=== PATIENT | female | born 1940 | race Hispanic/Latino ===

== ENCOUNTER 2017-10-23 13:08 | Observation (INO) | payer OTHER ==
[~2017-10-23] VITALS: Ht 165.1 cm; Wt 54.7 kg
[~2017-10-23 13:08] MED LIST: METO-408 PO; MULT-1203 PO; VIT D 3 PO
[2017-10-23] MEDS ORDERED: ASPIRIN 325 MG TABLET ONE (13:18)
[2017-10-23 13:20] LABS: BASOPHILS % (AUTO) 0.4 % (0.0-5.0); EOSINOPHILS % (AUTO) 0.5 % (0.0-8.0); HEMATOCRIT 37.1 % (36-48); LYMPHOCYTES % (AUTO) 19.8 % (21.0-51.0); MEAN CORPUSCULAR HEMOGLOBIN 31.1 pg (27.0-33.0); MEAN CORPUSCULAR HGB CONC 34.4 g/dL (32.0-36.0); MEAN CORPUSCULAR VOLUME 90.4 fL (79-99); MONOCYTES % (AUTO) 7.6 % (3.0-13.0); NEUTROPHILS % (AUTO) 71.7 % (40.0-77.0); PLATELET COUNT (AUTO) 348 K/uL (130-400); RED BLOOD CELL COUNT(AUTO) 4.11 MIL/uL (4.00-5.50); RED CELL DISTRIBUTION WIDTH 13.6 % (11.0-15.5); WHITE BLOOD COUNT (AUTO) 6.6 K/uL (4.8-10.8)
[2017-10-23 13:30] LABS: CREATININE 0.7 mg/dL (0.5-1.5); POTASSIUM 4.2 mmol/L (3.5-5.1)
[2017-10-23] MEDS ORDERED: METOPROLOL TARTRATE 1 MG/ML 5ML VIAL IV ONE (13:33)
[2017-10-23 13:34] LABS: ALBUMIN 3.7 g/dL (3.5-5.0); BILIRUBIN,TOTAL 0.3 mg/dL (0.2-1.0)
[2017-10-23 14:02] LABS: B-TYPE NATRIURETIC PEPTIDE 643 pg/mL (0-100)
[2017-10-23 14:04] LABS: INR 1.1 (0.85-1.15); PARTIAL THROMBOPLASTIN TIME 29.2 SEC (26.3-35.5); PROTHROMBIN TIME 11.5 SEC (9.6-11.6)
[2017-10-23 15:20] LABS: APPEARANCE,URINE Clear (CLEAR); BILIRUBIN,URINE Negative (NEGATIVE); COLOR,URINE Yellow (YELLOW); GLUCOSE, URINE (UA) Negative (NEGATIVE); KETONES,URINE Trace mg/dL (NEGATIVE); LEUKOCYTE ESTERASE ,URINE Trace (NEGATIVE); NITRATE,URINE Negative (NEGATIVE); OCCULT BLOOD,URINE Negative (NEGATIVE); PH,URINE 8.5 (5.0-8.0); PROTEIN,URINE Negative (NEGATIVE); UROBILINOGEN,URINE 0.2 mg/dL (0.2-1.0)
[2017-10-23 15:40] LABS: BACTERIA,URINE Rare /HPF (None Seen); RBC,URINE 0-1 /HPF (0-1); SQUAMOUS EPITHELIAL CELL,UR Rare /HPF (0-2)
[2017-10-23 15:41] LABS: AMORPHOUS SEDIMENT,UR Rare /LPF (None Seen)
[2017-10-23] MEDS ORDERED: ACETAMINOPHEN 325 MG TAB PO PRN ×2 (16:00)
[2017-10-23] MEDS ORDERED: ONDANSETRON HCL 4 MG/2 ML VIAL IVP PRN (16:00)
[2017-10-23] MEDS ORDERED: LACTULOSE 20 GM/30 ML UDCUP PO PRN (16:00)
[2017-10-23 18:30] VITALS: BP 140/95
[2017-10-23] MEDS ORDERED: ONDANSETRON HCL MDV 20ML 2 MG/ML VIAL IVP PRN (18:45)
[2017-10-23 19:24] VITALS: BP 145/83
[2017-10-23] MEDS ORDERED: LISI-613 PO (20:38)
[2017-10-23] MEDS: METOPROLOL TARTRATE 50 MG TAB PO SCH (21:19)
[2017-10-23] MEDS ORDERED: POTASSIUM CHLORIDE 10% ELIXIR 20 MEQ/15 ML UDCUP PO PRN (23:45)
[2017-10-23] MEDS ORDERED: POTASSIUM CHLORIDE 20 MEQ ERTAB PO PRN (23:45)
[2017-10-23] MEDS ORDERED: POTASSIUM CHLORIDE 20MEQ/100ML 100 ML IV PRN (23:45)
[2017-10-23] MEDS ORDERED: LIDOCAINE HCL-MPF 1% 2ML VIAL IVP PRN (23:45)
[2017-10-24] VITALS: BP 137/88
[2017-10-24 00:35] LABS: CREATINE KINASE MB 1.1 ng/mL (0.5-3.6); CREATINE KINASE, TOTAL 82 U/L (21-232); MYOGLOBIN 31 ng/mL (10-92); TROPONIN I < 0.04 ng/mL (0.00-0.06)
[2017-10-24 04:00] VITALS: BP 137/88
[2017-10-24 05:57] LABS: MEAN CORPUSCULAR HEMOGLOBIN 32.2 pg (27.0-33.0); MEAN CORPUSCULAR HGB CONC 35.6 g/dL (32.0-36.0); MEAN CORPUSCULAR VOLUME 90.6 fL (79-99); NUCLEATED RED BLOOD CELLS 0.1 % (0.0-0.19); PLATELET COUNT (AUTO) 331 K/uL (130-400); RED BLOOD CELL COUNT(AUTO) 3.87 MIL/uL (4.00-5.50); RED CELL DISTRIBUTION WIDTH 13.6 % (11.0-15.5)
[2017-10-24 06:35] LABS: CARBON DIOXIDE 29 mmol/L (21-32); CHLORIDE 105 mmol/L (101-111); CHOLESTEROL 182 mg/dL (<200); CREATINE KINASE, TOTAL 76 U/L (21-232); CREATININE 0.7 mg/dL (0.5-1.5); GLOMERULAR FILTR. RATE CALC 86 mL/min (>60); GLUCOSE,RANDOM 93 mg/dL (70-105); HDL CHOLESTEROL 59 mg/dL (35-85); LDL DIRECT 109 mg/dL (0-99); MYOGLOBIN 28 ng/mL (10-92); POTASSIUM 3.8 mmol/L (3.5-5.1); SODIUM SERUM 141 mmol/L (136-145); THYROID STIMULATING HORMONE 1.81 uIU/mL (0.36-3.74); TRIGLYCERIDES 102 mg/dL (30-200); TROPONIN I < 0.04 ng/mL (0.00-0.06); UREA NITROGEN, BLOOD 19 mg/dL (7-18)
[2017-10-24 07:00] VITALS: BP 123/80
[2017-10-24] MEDS: METOPROLOL TARTRATE 50 MG TAB PO SCH ×2 (08:27→20:28)
[2017-10-24] MEDS: ASPIRIN 325MG EC TAB 325 MG TABLET.DR PO SCH (08:27)
[2017-10-24] MEDS: ENOXAPARIN SODIUM 40 MG/0.4 ML SYRINGE SQ SCH (08:28)
[2017-10-24 11:00] VITALS: BP 123/71
[2017-10-24 16:00] VITALS: BP 136/88
[2017-10-24 19:46] VITALS: BP 111/76
[2017-10-25 00:21] VITALS: BP 137/88
[2017-10-25 04:05] VITALS: BP 135/74
[2017-10-25 04:08] LABS: CREATININE 0.7 mg/dL (0.5-1.5); POTASSIUM 3.6 mmol/L (3.5-5.1)
[2017-10-25 08:42] VITALS: BP 101/67
[2017-10-25] MEDS: METOPROLOL TARTRATE 50 MG TAB PO SCH (09:00)
[2017-10-25] MEDS: ASPIRIN 325MG EC TAB 325 MG TABLET.DR PO SCH (09:00)
[2017-10-25] MEDS: ENOXAPARIN SODIUM 40 MG/0.4 ML SYRINGE SQ SCH (09:00)
[2017-10-25] MEDS ORDERED: VIT D 2000 UNIT PO SCH (09:00)
[2017-10-25] MEDS ORDERED: MULTIVITAMIN TABLET PO SCH (09:00)
[2017-10-25] MEDS ORDERED: METO-409 PO (12:01)
[2017-10-25] MEDS ORDERED: APIX5TAB PO (12:03)
[2017-10-25 12:05] VITALS: BP 104/76
[2017-10-25] MEDS ORDERED: APIXABAN 5 MG TABLET PO ONE (15:14)
[2017-10-25] MEDS ORDERED: APIXABAN 5 MG TABLET PO SCH (21:00)
== END 2017-10-25 15:46 | disposition home or self-care (01) ==
LOC: EDH 13:08 → 2AH 15:34
PROVIDERS: ADMIT Family Medicine; ATTEND Family Medicine
DX: I48.91 Unspecified atrial fibrillation (principal); R74.8 Abnormal levels of other serum enzymes; I10 Essential (primary) hypertension; E78.5 Hyperlipidemia, unspecified
CPT/HCPCS: 36415 ×3; 71045; 80048 ×2; 80053; 80061; 81001; 82550 ×3; 82553 ×2; 83874 ×2; 83880 ×2; 84443; 84484 ×3; 85025; 85027; 85610; 85730; 93005 ×3; 93306; 93880; 96372 ×2; 99285; A4510; A4600; G0378 ×48; J1650 ×2; J3490; 96361; 96365; 96366; 96367

== ENCOUNTER 2018-07-22 14:39 | Emergency (ER) | payer OTHER ==
[~2018-07-22 14:39] MED LIST changes: +APIX5TAB PO; +LISI-613 PO; -METO-408 PO; +METO-409 PO
[2018-07-22 14:57] LABS: BASOPHILS % (AUTO) 0.2 % (0.0-5.0); EOSINOPHILS % (AUTO) 0.2 % (0.0-8.0); HEMATOCRIT 36.6 % (36-48); LYMPHOCYTES % (AUTO) 8.7 % (21.0-51.0); MEAN CORPUSCULAR HEMOGLOBIN 30.4 pg (27.0-33.0); MEAN CORPUSCULAR HGB CONC 32.9 g/dL (32.0-36.0); MEAN CORPUSCULAR VOLUME 92.2 fL (79-99); MONOCYTES % (AUTO) 8.7 % (3.0-13.0); NEUTROPHILS % (AUTO) 82.2 % (40.0-77.0); NUCLEATED RED BLOOD CELLS 0.1 % (0.0-0.19); PLATELET COUNT (AUTO) 229 K/uL (130-400); RED BLOOD CELL COUNT(AUTO) 3.97 MIL/uL (4.00-5.50); WHITE BLOOD COUNT (AUTO) 12.5 K/uL (4.8-10.8)
[2018-07-22 15:12] LABS: INR 1.15 (0.85-1.15)
[2018-07-22 15:17] LABS: CREATININE 0.7 mg/dL (0.5-1.5); POTASSIUM 4.1 mmol/L (3.5-5.1)
[2018-07-22 15:21] LABS: ALBUMIN 3.5 g/dL (3.5-5.0); BILIRUBIN,TOTAL 0.4 mg/dL (0.2-1.0)
[2018-07-22 15:21] LABS: APPEARANCE,URINE Clear (CLEAR); BILIRUBIN,URINE Negative (NEGATIVE); COLOR,URINE Yellow (YELLOW); GLUCOSE, URINE (UA) Negative (NEGATIVE); KETONES,URINE Trace mg/dL (NEGATIVE); LEUKOCYTE ESTERASE ,URINE Trace (NEGATIVE); NITRATE,URINE Negative (NEGATIVE); OCCULT BLOOD,URINE Trace (NEGATIVE); PROTEIN,URINE Negative (NEGATIVE)
[2018-07-22] MEDS ORDERED: NITROGLYCERIN 1GM/1 INCH PACKET TD ONE (15:33)
[2018-07-22 15:50] LABS: BACTERIA,URINE Few /HPF (None Seen); RBC,URINE None Seen /HPF (0-1); SQUAMOUS EPITHELIAL CELL,UR 0-2 /HPF (0-2)
== END 2018-07-22 19:36 | disposition home or self-care (01) ==
LOC: EDH 14:39
DX: R07.89 Other chest pain (principal); I10 Essential (primary) hypertension; I48.91 Unspecified atrial fibrillation; E78.5 Hyperlipidemia, unspecified
CPT/HCPCS: 36415; 71045; 80053; 81001; 82150; 82550; 84484; 85025; 85610; 85730; 87804; 93005

== ENCOUNTER → 2018-07-28 | Outpatient (CLI) | payer OTHER | END | disposition home or self-care (01) | LOC: RAH 14:19 | PROVIDERS: ATTEND Internal Medicine Cardiovascular Disease | DX: Z13.6 Encounter for screening for cardiovascular disorders (principal) | CPT/HCPCS: 75571 ==

== ENCOUNTER 2023-05-30 06:22 | Observation (INO) | payer OTHER ==
[~2023-05-30] VITALS: Ht 165.1 cm; Wt 55.2 kg
[~2023-05-30 06:22] MED LIST changes: -LISI-613 PO; +LISI20TA24 PO
[2023-05-30 06:45] LABS: BASOPHILS # (AUTO) 0.02 K/uL (0.00-0.20); BASOPHILS % (AUTO) 0.2 % (0.0-5.0); EOSINOPHILS # (AUTO) 0.04 K/uL (0.00-0.70); EOSINOPHILS % (AUTO) 0.4 % (0.0-8.0); HEMATOCRIT 35.8 % (36-48); IMMATURE GRANULOCYTE ABSOLUTE 0.06 K/uL (0-1); LYMPHOCYTES # (AUTO) 1.4 K/uL (1.0-4.8); LYMPHOCYTES % (AUTO) 14.3 % (21.0-51.0); MEAN CORPUSCULAR HEMOGLOBIN 32.2 pg (27.0-33.0); MEAN CORPUSCULAR HGB CONC 34.1 g/dL (32.0-36.0); MEAN CORPUSCULAR VOLUME 94.5 fL (79-99); MONOCYTES # (AUTO) 0.5 K/uL (0.1-1.0); MONOCYTES % (AUTO) 5.1 % (3.0-13.0); NEUTROPHILS # (AUTO) 7.7 K/uL (1.8-7.7); NEUTROPHILS % (AUTO) 79.4 % (40.0-77.0); PLATELET COUNT (AUTO) 243 K/uL (130-400); RED BLOOD CELL COUNT(AUTO) 3.79 MIL/uL (4.00-5.50); RED CELL DISTRIBUTION WIDTH 13.5 % (11.0-15.5); WHITE BLOOD COUNT (AUTO) 9.7 K/uL (4.8-10.8)
[2023-05-30 06:53] LABS: APPEARANCE,URINE CLEAR (CLEAR); BILIRUBIN,URINE NEGATIVE (NEGATIVE); COLOR,URINE COLORLESS (YELLOW); GLUCOSE, URINE (UA) 200 mg/dL (NEGATIVE); KETONES,URINE 10 mg/dL (NEGATIVE); LEUKOCYTE ESTERASE ,URINE NEGATIVE Leu/uL (NEGATIVE); NITRATE,URINE NEGATIVE (NEGATIVE); OCCULT BLOOD,URINE NEGATIVE (NEGATIVE); PROTEIN,URINE NEGATIVE (NEGATIVE); UROBILINOGEN,URINE 0.2 mg/dL (0.2-1.0)
[2023-05-30 06:55] LABS: ADD UA MICROSCOPIC YES
[2023-05-30 06:57] LABS: RBC,URINE 0-1 /HPF (0-1); WBC,URINE 0-1 /HPF (0-1)
[2023-05-30 07:03] LABS: SARS-CoV-2, RNA, NAAT NEGATIVE SARS CoV-2 (NEGATIVE)
[2023-05-30 07:08] LABS: ALBUMIN 3.9 g/dL (3.5-5.0); BILIRUBIN,TOTAL 0.5 mg/dL (0.2-1.0); CREATININE 0.7 mg/dL (0.5-1.5); INFLUENZA TYPE A Negative For Type A (NEGATIVE); INFLUENZA TYPE B Negative For Type B (NEGATIVE); POTASSIUM 3.2 mmol/L (3.5-5.1); TOTAL PROTEIN, SERUM 7.4 g/dL (6.0-8.3)
[2023-05-30] MEDS ORDERED: FAMOTIDINE 20MG VIAL IV ONE (08:00)
[2023-05-30] MEDS ORDERED: ONDANSETRON 4MG INJ IVP ONE (08:00)
[2023-05-30] MEDS ORDERED: IOHEXOL-350 75 ML VIAL IV ONE (08:06)
[2023-05-30] MEDS ORDERED: CEFTRIAXONE 2GM VIAL IVPB ONE (08:30)
[2023-05-30] MEDS ORDERED: ZOLPIDEM TARTRATE 5 MG TAB PO PRN (12:00)
[2023-05-30] MEDS ORDERED: GUAIFENESIN-DM 200/20 MG 10 ML PO PRN (12:00)
[2023-05-30] MEDS ORDERED: ACETAMINOPHEN 325 MG TAB PO PRN ×2 (12:00)
[2023-05-30] MEDS ORDERED: KETOROLAC 15MG/ML VIAL (15MG/ML) IV PRN (12:00)
[2023-05-30] MEDS ORDERED: MAG/ALUM/SIMETH 30 ML UDCUP PO PRN (12:00)
[2023-05-30] MEDS ORDERED: LACTULOSE 20 GM/30 ML UDCUP PO PRN (12:00)
[2023-05-30] MEDS ORDERED: ALBUTEROL 0.083% 2.5 MG/3 ML INH IH PRN (12:00)
[2023-05-30] MEDS ORDERED: ONDANSETRON 4MG INJ IV PRN (12:00)
[2023-05-30] MEDS ORDERED: HYDRALAZINE 20MG/ML VIAL IV PRN (12:00)
[2023-05-30] MEDS ORDERED: DiphenhydrAMINE HCL 50 MG/ML VIAL IV PRN (12:00)
[2023-05-30] MEDS ORDERED: NITROGLYCERIN 0.4 MG SL TAB SL PRN (12:00)
[2023-05-30] MEDS ORDERED: POTASSIUM CHLORIDE 20MEQ/100ML 100 ML IV PRN (12:30)
[2023-05-30] MEDS: POTASSIUM CHLORIDE 10% ELIXIR 20 MEQ/15 ML UDCUP PO PRN ×2 (13:02→13:10)
[2023-05-30] MEDS: LACTATED RINGERS 1000ML 1,000 ML IV SCH ×2 (13:02→22:00)
[2023-05-30 16:00] VITALS: BP 149/78; PULSE 65; RESP 18
[2023-05-30] MEDS ORDERED: INSULIN HUMULIN R 100 UNIT/ML 3ML SQ SCH (16:30)
[2023-05-30 20:00] VITALS: O2SAT 97
[2023-05-30] MEDS: LISINOPRIL 20 MG TABLET PO SCH (20:33)
[2023-05-30] MEDS: APIXABAN 5 MG TABLET PO SCH (20:33)
[2023-05-30] MEDS: FAMOTIDINE 20MG VIAL IV SCH (20:33)
[2023-05-30 22:27] VITALS: BP 156/82; PULSE 72; RESP 18
[2023-05-30 23:54] VITALS: BP 150/76; PULSE 68; RESP 18
[2023-05-31] VITALS (7 sets, daily range): BP systolic 135–152; BP diastolic 65–83; PULSE 55–64; RESP 17–18; O2SAT 93–98
[2023-05-31 05:31] LABS: BASOPHILS # (AUTO) 0.01 K/uL (0.00-0.20); BASOPHILS % (AUTO) 0.2 % (0.0-5.0); HEMATOCRIT 29.7 % (36-48); IMMATURE GRANULOCYTE ABSOLUTE 0.05 K/uL (0-1); LYMPHOCYTES # (AUTO) 0.9 K/uL (1.0-4.8); LYMPHOCYTES % (AUTO) 13.3 % (21.0-51.0); MEAN CORPUSCULAR HEMOGLOBIN 31.7 pg (27.0-33.0); MEAN CORPUSCULAR HGB CONC 34.7 g/dL (32.0-36.0); MEAN CORPUSCULAR VOLUME 91.4 fL (79-99); MONOCYTES # (AUTO) 0.5 K/uL (0.1-1.0); MONOCYTES % (AUTO) 8.3 % (3.0-13.0); NEUTROPHILS % (AUTO) 77.4 % (40.0-77.0); PLATELET COUNT (AUTO) 212 K/uL (130-400); RED BLOOD CELL COUNT(AUTO) 3.25 MIL/uL (4.00-5.50); RED CELL DISTRIBUTION WIDTH 13.5 % (11.0-15.5); WHITE BLOOD COUNT (AUTO) 6.4 K/uL (4.8-10.8)
[2023-05-31 05:38] LABS: HEMOGLOBIN A1C 5.6 % (4.0-6.0)
[2023-05-31 05:56] LABS: ALANINE AMINOTRANSFERASE 20 U/L (12-78); ALBUMIN 3.1 g/dL (3.5-5.0); ASPARTATE AMINOTRANSFERASE 19 U/L (10-37); BILIRUBIN,TOTAL 0.5 mg/dL (0.2-1.0); CARBON DIOXIDE 30 mmol/L (21-32); CREATINE KINASE, TOTAL 133 U/L (21-232); CREATININE 0.7 mg/dL (0.5-1.5); GLOMERULAR FILTR. RATE CALC 86 mL/min (>90); GLUCOSE,RANDOM 102 mg/dL (70-105); THYROID STIMULATING HORMONE 1.38 uIU/mL (0.36-3.74); TOTAL PROTEIN, SERUM 6.3 g/dL (6.0-8.3); UREA NITROGEN, BLOOD 12 mg/dL (7-18)
[2023-05-31 06:04] LABS: CHLORIDE 99 mmol/L (101-111); POTASSIUM 3.3 mmol/L (3.5-5.1); SODIUM SERUM 135 mmol/L (136-145)
[2023-05-31 06:11] LABS: AMMONIA < 10 umol/L (11-32)
[2023-05-31] MEDS: MAGNESIUM 2GM PREMIX 50ML 50 ML IV PRN (06:11)
[2023-05-31] MEDS: KCL 20 MEQ ERTAB PO PRN (06:12)
[2023-05-31] MEDS ORDERED: MAGNESIUM 2GM PREMIX 50ML 50 ML IV SCH (08:00)
[2023-05-31] MEDS ORDERED: KCL 20 MEQ ERTAB PO ONE (08:00)
[2023-05-31] MEDS ORDERED: NON-FORMULARY MEDICATION 1 EACH (Metoprolol Succinate 100 MG) PO SCH (09:00)
[2023-05-31] MEDS ORDERED: ENOXAPARIN SODIUM 40 MG/0.4 ML SYRINGE SQ SCH (09:00)
[2023-05-31] MEDS ORDERED: NON-FORMULARY MEDICATION 1 EACH (Multivitamin (Multi Vitamin Daily) 1 EACH) PO SCH (09:00)
[2023-05-31] MEDS: VIT D3 2000 UNIT PO SCH (09:08)
[2023-05-31] MEDS: FAMOTIDINE 20MG VIAL IV SCH ×2 (09:09→20:03)
[2023-05-31] MEDS: METOPROLOL SUCCINATE 50 MG TAB.SR.24H PO SCH (09:09)
[2023-05-31] MEDS: APIXABAN 5 MG TABLET PO SCH ×2 (09:09→20:05)
[2023-05-31] MEDS: MULTIVITAMIN TABLET PO SCH (09:09)
[2023-05-31] MEDS: LACTATED RINGERS 1000ML 1,000 ML IV SCH ×3 (09:10→22:21)
[2023-05-31] MEDS: LISINOPRIL 20 MG TABLET PO SCH (20:04)
[2023-06-01 00:20] VITALS: BP 168/80; PULSE 59; RESP 18
[2023-06-01 04:20] VITALS: BP 115/58; PULSE 65; RESP 18
[2023-06-01] MEDS: LACTATED RINGERS 1000ML 1,000 ML IV SCH (05:44)
[2023-06-01 05:53] LABS: HEMATOCRIT 33.3 % (36-48); MEAN CORPUSCULAR HEMOGLOBIN 31.8 pg (27.0-33.0); MEAN CORPUSCULAR HGB CONC 33.9 g/dL (32.0-36.0); MEAN CORPUSCULAR VOLUME 93.8 fL (79-99); RED BLOOD CELL COUNT(AUTO) 3.55 MIL/uL (4.00-5.50); RED CELL DISTRIBUTION WIDTH 13.9 % (11.0-15.5); WHITE BLOOD COUNT (AUTO) 6.5 K/uL (4.8-10.8)
[2023-06-01 06:07] LABS: ALBUMIN 3.1 g/dL (3.5-5.0); BILIRUBIN,TOTAL 0.4 mg/dL (0.2-1.0); CREATININE 0.6 mg/dL (0.5-1.5); MAGNESIUM 1.8 mg/dL (1.80-2.40); POTASSIUM 3.5 mmol/L (3.5-5.1)
[2023-06-01] MEDS: POTASSIUM CHLORIDE 10% ELIXIR 20 MEQ/15 ML UDCUP PO PRN (06:33)
[2023-06-01] MEDS: MAGNESIUM 2GM PREMIX 50ML 50 ML IV PRN (06:34)
[2023-06-01 08:00] VITALS: BP 141/72; PULSE 62; RESP 18; O2SAT 98
[2023-06-01] MEDS: MULTIVITAMIN TABLET PO SCH (08:44)
[2023-06-01] MEDS: METOPROLOL SUCCINATE 50 MG TAB.SR.24H PO SCH (08:44)
[2023-06-01] MEDS: FAMOTIDINE 20MG VIAL IV SCH (08:45)
[2023-06-01] MEDS: APIXABAN 5 MG TABLET PO SCH (08:45)
[2023-06-01] MEDS: KCL 20 MEQ ERTAB PO PRN (08:46)
[2023-06-01] MEDS: VIT D3 2000 UNIT PO SCH (08:48)
[2023-06-01 09:30] VITALS: BP_SYST 126; BP_SYST 133; BP_SYST 142; BP_DIAS 58; BP_DIAS 61; BP_DIAS 63; PULSE 63
[2023-06-01 12:00] VITALS: BP 140/67; PULSE 61; RESP 18
== END 2023-06-01 16:30 | disposition home or self-care (01) ==
LOC: EDH 06:22 → EDHIP 11:57 → 3BH 14:45
PROVIDERS: ADMIT Internal Medicine; ATTEND Internal Medicine
DX: R55 Syncope and collapse (principal); Z20.822 Contact with and (suspected) exposure to COVID-19; E87.6 Hypokalemia; M54.2 Cervicalgia; E78.5 Hyperlipidemia, unspecified; E86.0 Dehydration; I11.0 Hypertensive heart disease with heart failure; I50.32 Chronic diastolic (congestive) heart failure; E87.8 Other disorders of electrolyte and fluid balance, not elsewhere classified; R11.2 Nausea with vomiting, unspecified; I48.91 Unspecified atrial fibrillation; Z79.01 Long term (current) use of anticoagulants; Z79.899 Other long term (current) drug therapy
CPT/HCPCS: 96361 ×3; 96375 ×2; 99285; 84484 ×2; 80053 ×3; 83690; 85025 ×2; 87040 ×2; 87804 ×2; 83605 ×2; 81001; 36415 ×3; 87635; 71045; 72125; 74178; 93005; 94664; 96376 ×2; 96365; 96366; 83036; 84443; 82550; 83735 ×2; 83880; 82140; 70450; 93306; 93880 ×2; 97161; 97116; 84145; 85027; G0378 ×49; C9803; J3490 ×5; J2405 ×2; Q9967; J3475 ×2; J7120 ×2; J0360

== ENCOUNTER 2023-10-10 11:12 | Emergency (ER) | payer OTHER ==
[~2023-10-10] VITALS: Ht 162.6 cm; Wt 54.4 kg
[2023-10-10] MEDS: METOCLOPRAMIDE 10 MG/2 ML VIAL IVP ONE (12:07)
[2023-10-10] MEDS: MECLIZINE HCL 25 MG TABLET PO ONE (12:07)
[2023-10-10 12:11] LABS: BASOPHILS # (AUTO) 0.02 K/uL (0.00-0.20); BASOPHILS % (AUTO) 0.3 % (0.0-5.0); EOSINOPHILS # (AUTO) 0.15 K/uL (0.00-0.70); EOSINOPHILS % (AUTO) 1.9 % (0.0-8.0); HEMATOCRIT 38.6 % (36-48); LYMPHOCYTES # (AUTO) 1.5 K/uL (1.0-4.8); MEAN CORPUSCULAR HEMOGLOBIN 31.4 pg (27.0-33.0); MEAN CORPUSCULAR HGB CONC 33.7 g/dL (32.0-36.0); MEAN CORPUSCULAR VOLUME 93.2 fL (79-99); MONOCYTES # (AUTO) 0.5 K/uL (0.1-1.0); MONOCYTES % (AUTO) 6.5 % (3.0-13.0); NEUTROPHILS # (AUTO) 5.7 K/uL (1.8-7.7); PLATELET COUNT (AUTO) 280 K/uL (130-400); RED BLOOD CELL COUNT(AUTO) 4.14 MIL/uL (4.00-5.50); RED CELL DISTRIBUTION WIDTH 14.5 % (11.0-15.5)
[2023-10-10 12:13] LABS: BILIRUBIN,URINE NEGATIVE (NEGATIVE); COLOR,URINE YELLOW (YELLOW); GLUCOSE, URINE (UA) NEGATIVE (NEGATIVE); KETONES,URINE NEGATIVE (NEGATIVE); LEUKOCYTE ESTERASE ,URINE NEGATIVE Leu/uL (NEGATIVE); NITRATE,URINE NEGATIVE (NEGATIVE); OCCULT BLOOD,URINE NEGATIVE (NEGATIVE); PH,URINE 7.5 (5.0-8.0); PROTEIN,URINE NEGATIVE (NEGATIVE); UROBILINOGEN,URINE 0.2 mg/dL (0.2-1.0)
[2023-10-10 12:15] LABS: ADD UA MICROSCOPIC YES; APPEARANCE,URINE HAZY (CLEAR)
[2023-10-10 12:17] LABS: BACTERIA,URINE FEW /HPF (None Seen); MUCUS,URINE RARE LPF (None Seen); RBC,URINE 0-1 /HPF (0-1); WBC,URINE 0-1 /HPF (0-1)
[2023-10-10 12:31] LABS: CREATININE 0.7 mg/dL (0.5-1.0); POTASSIUM 3.8 mmol/L (3.5-5.1)
[2023-10-10 12:43] LABS: BILIRUBIN,TOTAL 0.3 mg/dL (0.2-1.0); MAGNESIUM 1.8 mg/dL (1.80-2.40); THYROID STIMULATING HORMONE 9.61 uIU/mL (0.36-3.74); TOTAL PROTEIN, SERUM 7.7 g/dL (6.0-8.3)
[2023-10-10 13:49] VITALS: BP 157/68; PULSE 62; RESP 16; O2SAT 97
[2023-10-10] MEDS ORDERED: LEVO25TA9 PO (13:49)
[2023-10-10] MEDS ORDERED: MECL-302 PO (13:49)
== END 2023-10-10 14:18 | disposition home or self-care (01) ==
LOC: EDH 11:12
DX: R55 Syncope and collapse (principal); H81.10 Benign paroxysmal vertigo, unspecified ear; E03.9 Hypothyroidism, unspecified; I10 Essential (primary) hypertension; I48.91 Unspecified atrial fibrillation; Z79.01 Long term (current) use of anticoagulants; Z79.899 Other long term (current) drug therapy
CPT/HCPCS: 99285; 96374; 70450; 84443; 83735; 84484; 80053; 83690; 85025; 82948; 81001; 36415; 93005; J2765

== ENCOUNTER → 2023-12-01 | Outpatient (CLI) | payer OTHER ==
[~2023-12-01] MED LIST changes: +LEVO25TA9 PO; +MECL-302 PO
[2023-12-01 17:11] LABS: T4 (THYROXINE) 10.3 ug/dL (4.7-13.3)
== END | disposition home or self-care (01) ==
LOC: LAB 11:44
PROVIDERS: ATTEND Physician Assistant
DX: I48.0 Paroxysmal atrial fibrillation (principal)
CPT/HCPCS: 36415; 84436; 84479

== ENCOUNTER 2024-08-04 10:39 | Emergency (ER) | payer OTHER ==
[~2024-08-04] VITALS: Ht 165.1 cm; Wt 54.9 kg
--- NOTE | 2024-08-04 11:44 | HMCIMG ---
Exam: NONCONTRAST CT BRAIN REASON: occipital headache. COMPARISON: 10/10/2023 TECHNIQUE: Images are obtained from vertex to the skull base. The exam was performed without IV contrast. FINDINGS: There are generous ventricles and sulci. There is decreased attenuation in the deep central white matter. These findings are consistent with atrophy. There are no acute appearing focal parenchymal lesions. There is no evidence of mass, intracranial hemorrhage or acute stroke. Posterior fossa and brainstem structures appear unremarkable. There are no abnormal fluid collections. Extra cranial soft tissues appear unremarkable as well. IMPRESSION: 1. Atrophy, no acute finding. CT was performed with one or more following dose reduction techniques: automated exposure control, adjustment of the mA and kv according to patient's size, or use of a iterative reconstruction technique.
[2024-08-04 12:02] LABS: BASOPHILS # (AUTO) 0.01 K/uL (0.00-0.20); BASOPHILS % (AUTO) 0.2 % (0.0-5.0); EOSINOPHILS # (AUTO) 0.05 K/uL (0.00-0.70); HEMATOCRIT 36.1 % (36-48); IMMATURE GRANULOCYTE ABSOLUTE 0.02 K/uL (0-1); LYMPHOCYTES % (AUTO) 20.7 % (21.0-51.0); MEAN CORPUSCULAR HEMOGLOBIN 31.6 pg (27.0-33.0); MEAN CORPUSCULAR HGB CONC 32.7 g/dL (32.0-36.0); MEAN CORPUSCULAR VOLUME 96.5 fL (79-99); MONOCYTES # (AUTO) 0.5 K/uL (0.1-1.0); MONOCYTES % (AUTO) 10.2 % (3.0-13.0); NEUTROPHILS # (AUTO) 3.3 K/uL (1.8-7.7); NEUTROPHILS % (AUTO) 67.5 % (40.0-77.0); PLATELET COUNT (AUTO) 255 K/uL (130-400); RED BLOOD CELL COUNT(AUTO) 3.74 MIL/uL (4.00-5.50); RED CELL DISTRIBUTION WIDTH 14.2 % (11.0-15.5); WHITE BLOOD COUNT (AUTO) 4.8 K/uL (4.8-10.8)
[2024-08-04 12:03] LABS: CREATININE 0.7 mg/dL (0.5-1.0); POTASSIUM 3.6 mmol/L (3.5-5.1)
[2024-08-04] MEDS: ORPHENADRINE 60MG/2ML IM ONE (12:16)
[2024-08-04] MEDS: 0.9%NACL 1000ML 1,000 ML IV ONE (12:18)
[2024-08-04 12:21] VITALS: BP 190/83; PULSE 55; RESP 12; TEMP 97.8; O2SAT 99
[2024-08-04 12:37] LABS: APPEARANCE,URINE CLEAR (CLEAR); BILIRUBIN,URINE NEGATIVE (NEGATIVE); COLOR,URINE YELLOW (YELLOW); GLUCOSE, URINE (UA) NEGATIVE (NEGATIVE); KETONES,URINE NEGATIVE (NEGATIVE); LEUKOCYTE ESTERASE ,URINE NEGATIVE Leu/uL (NEGATIVE); NITRATE,URINE NEGATIVE (NEGATIVE); OCCULT BLOOD,URINE NEGATIVE (NEGATIVE); PROTEIN,URINE NEGATIVE (NEGATIVE); UROBILINOGEN,URINE 0.2 mg/dL (0.2-1.0)
--- NOTE | 2024-08-04 12:41 | NUR ---
elevated bp of 189/80 er made aware
[2024-08-04] MEDS ORDERED: DICL20GE TP (12:54)
--- NOTE | 2024-08-04 12:54 | ERN ---
General Chief Complaint: Headache Stated Complaint: LEFT SIDE HEAD PAIN Time Seen by MD: 10:43 Source: patient History of Present Illness Initial Comments Patient is an 83-year-old female coming in to be evaluated for occipital headache. Per family member and patient headaches has been ongoing for six months. Family was concerned because the pain ever subsided after see being evaluated by PCP no relief the pain so they came in for further evaluation. Patient is alert and oriented. No neurological deficit. Allergies: Coded Allergies: No Known Drug Allergies (Unverified Allergy, Unknown, 04/08/17) Home Meds Active Scripts Levothyroxine Sodium (Synthroid 25 Mcg Tab) 25 Mcg Tablet, 25 MCG PO DAILY, #30 TAB 2 Refills Prov:NATY CASTORENA Sr., MD 10/10/23 Meclizine HCl (Meclizine HCl) 25 Mg Tablet, 25 MG PO TID for vertigo, #30 TAB 2 Refills Prov:NATY CASTORENA Sr., MD 10/10/23 Apixaban (Eliquis) 5 Mg Tablet, 5 MG PO BID, #60 TAB 11 Refills Prov:CONCEPCIÓN NAVAS MD 10/25/17 Metoprolol Succinate (Metoprolol Succinate) 100 Mg Tab.er.24h, 100 MG PO DAILY, #30 TAB 3 Refills Prov:CONCEPCIÓN NAVAS MD 10/25/17 Reported Medications Lisinopril (Lisinopril) 20 Mg Tablet, 20 MG PO HS, TAB 10/23/17 Multivitamin (Multi Vitamin Daily) 1 Each Tablet, 1 EACH PO DAILY, TAB 04/07/17 [Vit D 3] No Conflict Check, 2000 UNIT PO DAILY 04/07/17 Past Medical History Past Medical History: A-Fib, High Cholesterol, Hypertension, Migraines Past Surgical History: None ROS Dictation CONSTITUTIONAL: No chills, no fever, no weakness, no diaphoresis, no malaise. HEAD/FACE: No signs of trauma. EENT: No eye pain, no blurred vision, no tearing, no double vision, no ear pain, no ear discharge, no nose pain, no nasal congestion, no throat pain, no throat swelling, no mouth pain. RESPIRATORY: No cough, no orthopnea, no SOB, no stridor, no wheezing. CARDIOVASCULAR: No chest pain, no edema, no palpitations, no syncope. GASTROINTESTINAL/ABDOMINAL: No abdominal pain, no constipation, no diarrhea, no nausea, no vomiting. GENITOURINARY: No abnormal discharge, no dysuria, no frequent urination, no hematuria. No complaints of pain in the genitals. MUSCULOSKELETAL: No back pain, no gout, no joint pain, no joint swelling, no muscle pain, no muscle stiffness, no neck pain. INTEGUMENTARY: No change in color, no change in hair/nails, no dryness, no lesion, no lumps, no rash. NEUROLOGICAL/PSYCH: No anxiety, not depressed, no emotional problem, no headache, no numbness, no pre-existing deficit, no history of seizures, no tremors, no weakness. HEMATOLOGIC/LYMPHATIC: Not anemic, no history of blood clots, no apparent bleeding, no bruising, glands not swollen. All Systems Negative, Except as Noted. Physical Exam Physical Exam Dictation VITAL SIGNS: Reviewed. GENERAL APPEARANCE: Alert, oriented x3, no acute distress, obese. HEAD AND FACE: Non-traumatic. EYES: PERRL, pink conjunctivas, eyelid no trauma, anterior chamber clear. EARS: Pinnas intact and no signs of trauma or erythema. Ear canals clear and no discharge. TMs no erythema. NOSE: No discharge, no bleeding. OROPHARYNX: Mouth normal, teeth no caries, tongue pink. Pharynx clear, no erythema. Tonsils no exudates, no abscesses noted. Mucous membrane moist. NECK: Supple, non-tender, no thyromegaly, no masses, no JVD, no bruits. BREAST: Deferred. CHEST: No tenderness, no crepitus, no paradoxical movement, no retractions. LUNGS: Clear, well-ventilated, symmetric, no rales, no wheezing, no rhonchi, no stridor, good breath sounds bilaterally. HEART: Regular rate, regular rhythm, no murmur, no gallops. VASCULAR: No peripheral edema. ABDOMEN: Soft, positive bowel sounds, nondistended, no guarding, nontender, no rebound, no masses no hepatomegaly, no splenomegaly, no Bender's sign, no hernias. RECTAL: Deferred. GENITAL: Deferred. NEUROLOGICAL: Normal speech, gross motor function intact, gross sensory function intact. MUSCULOSKELETAL: Neck nontender, full range of motion, back nontender, full range of motion. EXTREMITIES: Nontender, full range of motion. SKIN: Color pink, dry, no turgor, no rash, no lacerations, no abrasions, no contusions. LYMPHATICS: Deferred. Results Laboratory and Microbiology Lab and Micro Result Laboratory Tests Test 08/04/24 11:19 08/04/24 11:52 White Blood Count 4.8 K/uL (4.8-10.8) Red Blood Count 3.74 MIL/uL (4.00-5.50) L Hemoglobin 11.8 g/dL (12.0-16.0) L Hematocrit 36.1 % (36-48) Mean Corpuscular Volume 96.5 fL (79-99) Mean Corpuscular Hemoglobin 31.6 pg (27.0-33.0) Mean Corpuscular Hemoglobin Concent 32.7 g/dL (32.0-36.0) Red Cell Distribution Width 14.2 % (11.0-15.5) Platelet Count 255 K/uL (130-400) Mean Platelet Volume 10.6 fL (7.5-10.5) H Immature Granulocyte % (Auto) 0.4 % (0-1) Neutrophils (%) (Auto) 67.5 % (40.0-77.0) Lymphocytes (%) (Auto) 20.7 % (21.0-51.0) L Monocytes (%) (Auto) 10.2 % (3.0-13.0) Eosinophils (%) (Auto) 1.0 % (0.0-8.0) Basophils (%) (Auto) 0.2 % (0.0-5.0) Neutrophils # (Auto) 3.3 K/uL (1.8-7.7) Lymphocytes # (Auto) 1.0 K/uL (1.0-4.8) Monocytes # (Auto) 0.5 K/uL (0.1-1.0) Eosinophils # (Auto) 0.05 K/uL (0.00-0.70) Basophils # (Auto) 0.01 K/uL (0.00-0.20) Absolute Immature Granulocyte (auto 0.02 K/uL (0-1) Nucleated Red Blood Cells 0.0 % (0.0-0.19) Sodium Level 143 mmol/L (136-145) Potassium Level 3.6 mmol/L (3.5-5.1) Chloride Level 105 mmol/L (101-111) Carbon Dioxide Level 34 mmol/L (21-32) H Blood Urea Nitrogen 16 mg/dL (7-18) Creatinine 0.7 mg/dL (0.5-1.0) Glomerular Filtration Rate Calc 86 mL/min (>90) Random Glucose 79 mg/dL (70-105) Total Calcium 8.9 mg/dL (8.5-10.1) Urine Color YELLOW (YELLOW) Urine Appearance CLEAR (CLEAR) Urine pH 7.0 (5.0-8.0) Urine Specific [place] 1.016 (1.001-1.031) Urine Protein NEGATIVE mg/dL (NEGATIVE) Urine Glucose (UA) NEGATIVE mg/dL (NEGATIVE) Urine Ketones NEGATIVE mg/dL (NEGATIVE) Urine Occult Blood NEGATIVE (NEGATIVE) Urine Nitrate NEGATIVE (NEGATIVE) Urine Bilirubin NEGATIVE mg/dL (NEGATIVE) Urine Urobilinogen 0.2 mg/dL (0.2-1.0) Urine Leukocyte Esterase NEGATIVE Silver[place]/uL Urine RBC 2-5 /HPF (0-1) H Urine WBC 2-5 /HPF (0-1) H Urine Bacteria None /HPF (None Seen) Labs Reviewed?: Yes MDM MDM: Differential diagnosis: Headache, tension headache, sinusitis, chronic headache, Patient is a an 83-year-old female coming in to be evaluated for occipital headache. CT did not disclose any acute findings. Laboratory workup within normal limits. Patient will be discharged with a diagnosis of tension headache. ED Course Orders Procedure Category Date Status Time Cbc With Differential LAB 08/04/24 Complete 10:59 Basic Metabolic Panel LAB 08/04/24 Complete 10:59 Urinalysis LAB 08/04/24 Complete W/Microscopic 10:59 0.9%Nacl 1000ml (Ns PHA 08/04/24 Complete 1000ml) 11:00 Orphenadrine Citrate PHA 08/04/24 Complete (Norflex) 11:00 Ct Head/Brain W/O CT 08/04/24 Resulted Contrast 10:59 Current Medications Medications (Trade) Dose Ordered Sig/Jean Route PRN Reason Start Time Stop Time Status Last Admin Dose Admin Orphenadrine Citrate (Norflex) 60 mg ONCE ONCE IM 08/04/24 11:00 08/04/24 11:02 DC 08/04/24 12:16 Sodium Chloride 1,000 ml @ 0 mls/hr ONCE ONCE IV 08/04/24 11:00 08/04/24 11:02 DC 08/04/24 12:18 Vital Signs Date Time Temp Pulse Resp B/P (MAP) Pulse Ox O2 Delivery O2 Flow Rate FiO2 08/04/24 12:21 97.9 55 12 190/83 99 Room Air* 0 21 08/04/24 10:42 98.4 64 16 176/79 98 Room Air 0 DX & DISP Disposition: Discharge Departure Impression: Primary Impression: Chronic tension headache Condition: Stable Scripts Diclofenac Sodium (Voltaren Arthritis Pain) 1 % Gel..gram. 4 GM TP BID for 7 Days, #1 TUBE Prov: KLAUS BARKLEY MD 08/04/24 Additional Instructions: FOLLOW-UP WITH PRIMARY CARE PROVIDER IN 1 TO 2 DAYS. TAKE MEDICATIONS DIRECTED HERE IN THE EMERGENCY ROOM. OKAY TO CONTINUE HOME MEDICATIONS UNLESS OTHERWISE DISCUSSED DURING YOUR VISIT IN THE EMERGENCY ROOM TODAY. RETURN TO YOUR NEAREST EMERGENCY ROOM IF SYMPTOMS WORSEN OR IF THERE IS NO IMPROVEMENT. CALL 911 IF YOU NEED IMMEDIATE ASSISTANCE. TAKE TYLENOL [id number] NEEDED AND IF NO CONTRAINDICATIONS ARE PRESENT. INCREASE ORAL HYDRATION. A WOUND CULTURE OR URINE CULTURE WAS ORDERED HERE IN THE EMERGENCY ROOM DEPARTMENT PLEASE FOLLOW-UP WITH PRIMARY CARE PROVIDER AND ADVISE THEM TO GET REPEAT PORTS FROM OUR FACILITY. IF YOU HAD ANY ROHINI WRAP/SPLINTS THAT WERE APPLIED HERE, PLEASE DO NOT REMOVE THEM UNTIL YOU SEE YOUR PRIMARY CARE OR SPECIALTY. Referrals: Referrals: BHAVIN PADILLA MD (PCP) Time of Disposition: 12:53 KLAUS BARKLEY MD Aug 04, 2024 12:54
== END 2024-08-04 13:03 | disposition home or self-care (01) ==
LOC: EDH 10:39
DX: G44.229 Chronic tension-type headache, not intractable (principal); E78.00 Pure hypercholesterolemia, unspecified; I10 Essential (primary) hypertension; G43.909 Migraine, unspecified, not intractable, without status migrainosus; Z79.01 Long term (current) use of anticoagulants; Z79.890 Hormone replacement therapy; Z79.899 Other long term (current) drug therapy
CPT/HCPCS: 99285; 96360; 70450; 80048; 85025; 81001; 36415; 96372; J7030; J2360